=== PATIENT | female | born 1960 | race American Indian/Alaskan Native ===

== ENCOUNTER 2021-02-15 12:21 | Outpatient (CLI) | payer MEDICARE ==
[2021-02-15 13:02] LABS: Basophils % (Auto) 0.8 % (0.0-1.8); Eosinophils # (Auto) 0.2 K/mm3 (0.0-0.4); Eosinophils % (Auto) 3.8 % (0.0-4.3); Hematocrit 39.2 % (30.3-42.9); Hemoglobin 12.9 gm/dl (10.1-14.3); Lymphocytes # (Auto) 2.2 K/mm3 (1.2-5.4); Lymphocytes % (Auto) 39.7 % (13.4-35.0); Mean Corpuscular HGB Conc 33 % (30-34); Mean Corpuscular Volume 86 fl (79-97); Monocytes # (Auto) 0.4 K/mm3 (0.0-0.8); Monocytes % (Auto) 7.3 % (0.0-7.3); Platelet Count 264 K/mm3 (140-440); Red Blood Count 4.55 M/mm3 (3.65-5.03); Red Cell Distribution Width 15.7 % (13.2-15.2)
[2021-02-15 13:25] LABS: Alanine Aminotransferase 20 units/L (7-56); Albumin 3.9 g/dL (3.9-5); Blood Urea Nitrogen 17 mg/dL (7-17); Chol/HDL Ratio 3.77 %; HDL Cholesterol 36 mg/dL (40-59); Hemolysis Index 1; Iron 73 ug/dL (37-170); LDL Cholesterol,Direct 88 mg/dL (50-130); Total Iron Binding Capacity 284 mcg/dL (250-450)
[2021-02-15 13:44] LABS: BUN/Creatinine Ratio 24
[2021-02-19 12:56] LABS: Vitamin D, 25-OH, D2 <4 ng/mL
== END 2021-02-15 12:22 | disposition home or self-care (01) ==
LOC: LAB 12:21
PROVIDERS: ATTEND Surgery
DX: E55.9 Vitamin D deficiency, unspecified (principal); K30 Functional dyspepsia; E11.9 Type 2 diabetes mellitus without complications; E66.01 Morbid (severe) obesity due to excess calories; K90.9 Intestinal malabsorption, unspecified
CPT/HCPCS: 36415; 80053; 80061; 82306; 82607; 82728; 83036; 83550; 84443; 85025; 85730

== ENCOUNTER 2021-03-20 08:23 | Outpatient (CLI) | payer MEDICARE | END 2021-03-20 08:24 | disposition home or self-care (01) | LOC: FLUORO 08:23 | PROVIDERS: ATTEND Surgery | DX: Z01.818 Encounter for other preprocedural examination (principal); E66.01 Morbid (severe) obesity due to excess calories | CPT/HCPCS: 93005; 93017 ==

== ENCOUNTER 2021-03-28 06:40 | Outpatient (CLI) | payer MEDICARE ==
--- NOTE | 2021-03-28 22:50 | Pulmonary Function Test ---
DATE OF VISIT: 03/28/2021 PULMONARY FUNCTION TEST INTERPRETATION DATE OF SERVICE: 03/28/2021 SPIROMETRY: FVC 1.91 liters, which is 80% of the predicted. FEV1 is 1.68 liters, which is 90% of the predicted. FEV1/FVC ratio is 88 and flow volume loop. FEF 25-75% is 2.22 liters per second, which is 116% of predicted. The patient's MVV is 48, which is 55% of the predicted. IMPRESSION: Normal spirometry. TID: [id number] RECEIPT: [id number] JEFF/MEGHAN cc: Cole Gonzalez
--- NOTE | 2021-03-29 08:30 | Fluoroscopy Report ---
BARIUM SWALLOW Indication: MORBID OBESITY. Technique: Single and double contrast barium technique utilized to evaluate the esophagus. FINDINGS: To begin the exam, swallowing was evaluated in the lateral position under direct fluorosco py. Swallowing was normal. No mucosal irregularity, mass, mass effect, or critical stenosis. There were no abnormal tertiary c ontractions as seen with dysmotility. No gastroesophageal reflux. IMPRESSION: Unremarkable exam. Fluoroscopic time: 1.2 minutes Number of fluoroscopic images: 21 Signer Name: Kale Bobo Jr, MD Signed: 03/29/2021 8:26 AM Workstation Name: [id number]
== END 2021-03-28 06:41 | disposition home or self-care (01) ==
LOC: PF 06:40
PROVIDERS: ATTEND Surgery
DX: Z01.818 Encounter for other preprocedural examination (principal); E66.01 Morbid (severe) obesity due to excess calories
CPT/HCPCS: 74221; 94010

== ENCOUNTER 2021-04-10 06:53 | Day surgery (SDC) | payer MEDICARE ==
[2021-04-10] MEDS ORDERED: SODIUM CHLORIDE 0.9% 1000 ML 1,000 ML IV SCH (07:00)
[2021-04-10] MEDS ORDERED: ONDANSETRON 4 MG/2 ML INJ ONE (09:01)
[2021-04-10] MEDS ORDERED: LIDOCAINE MPF (2%) 20 MG/1 ML VIAL 5 ML ONE (09:01)
[2021-04-10] MEDS ORDERED: fentaNYL 100 MCG/2 ML INJ ONE (09:01)
[2021-04-10] MEDS ORDERED: propofoL 200 MG/20 ML VIAL IV ONE (09:02)
--- NOTE | 2021-04-10 09:03 | Anesthesia Consultation ---
Anesthesia Consult and Med Hx Date of service: 04/10/21 - Airway Anesthetic Teeth Evaluation: Good ROM Head & Neck: Adequate Mental/Hyoid Distance: Adequate Mallampati Class: Class III Intubation Access Assessment: Possibly Difficult - Pre-Operative Health Status ASA Pre-Surgery Classification: ASA3 Proposed Anesthetic Plan: MAC - Pulmonary Hx Sleep Apnea: Yes - Cardiovascular System Hx Hypertension: Yes Hx Coronary Artery Disease: No (high cholesterol) - Gastrointestinal Hx Gastroesophageal Reflux Disease: Yes - Endocrine Hx Non-Insulin Dependent Diabetes: Yes - Other Systems Hx Obesity: Yes (BMI 40.4)
--- NOTE | 2021-04-10 09:03 | Anesthesia Day of Surgery ---
Anesthesia Day of Surgery - Day of Surgery Patient Examined: Yes Patient H&P Reviewed: Yes Patient is NPO: Yes Beta Blockers: Yes
--- NOTE | 2021-04-10 09:16 | Discharge Summary ---
Providers - Providers Date of Admission: 04/10/2021 Date of discharge: 04/10/21 Attending physician: STELLA BOSS MD Hospitalization Reason for admission: s/p egd with bx Condition: Good Procedures: egd with bx Hospital course: Pt presented for a pre-op EGD as part of planning for up coming bariatric surgery. Procedure was uneventful and pt recovered well and was discharged to home. Disposition: DC-01 TO HOME OR SELFCARE Final Discharge Diagnosis (Prints w/discharge instructions): morbid obesity, gerd Core Measure Documentation - Palliative Care Palliative Care/ Comfort Measures: Not Applicable - Core Measures Any of the following diagnoses?: none Exam - Physical Exam Narrative exam: unchanged from pre-op - Constitutional Vitals: Temp Pulse Resp BP Pulse Ox 97.8 F 69 18 128/70 98 04/10/21 07:45 04/10/21 07:45 04/10/21 07:45 04/10/21 07:45 04/10/21 07:45 Plan Activity: advance as tolerated Diet: low carbohydrate Follow up with: JAYME ACE [Other] - 7 Days
--- NOTE | 2021-04-10 09:20 | Operative Report ---
Operative Report Operative Report: DATE: 04/10/2021 SURGERY: Upper endoscopy. SURGEON: Cole Gonzalez M.D. PROCEDURE: EGD with biopsy PRE OP DX: morbid obesity, GERD POST OP DX: morbid obesity, GERD TYPE OF ANESTHESIA: MAC. ESTIMATED BLOOD LOSS: None. COMPLICATIONS: None. SPECIMENS REMOVED: antral biopsy FINDINGS: 1. Small hiatal hernia. 2. antral gastritis INDICATIONS:INDICATION FOR PROCEDURE: Patient is a 60-year-old female with a long history of morbid obesity. She is planned to have a weight loss procedure and is here for preoperative planning EGD. PROCEDURE DETAILS: After consent was reviewed, patient was taken back to the operating room where patient was placed in the left lateral decubitus position and a bite block was placed in the mouth. After a time-out was called, MAC anesthesia was initiated. I then passed the endoscope into her oropharynx, into her esophagus, visualized the entire esophagus, which was all within normal limits. Z-line was noted to about 35cm from incisors. I then visualized the stomach and the first portion of the duodenum and there were no abnormalities I could clearly visualize except for antral gastritis. A cold forceps biopsy of the antrum was taken and will be sent to pathology to evaluate for H.pylori. I then retroflexed the scope in the stomach and visualized the hiatus and I could see a small hiatal hernia. I then desufflated the stomach and removed the endoscope. Patient tolerated procedure well and was transferred to recovery room in good and stable condition.
[2021-04-10 09:37] VITALS: BP 105/62
--- NOTE | 2021-04-10 17:20 | Post Anesthesia Evaluation ---
- Post Anesthesia Evaluation Patient Participated: Yes Airway Patent: Yes Stable Respiratory Function: Yes Nausea/Vomiting: No Temp > 96.8F: Yes Pain Manageable: Yes Adequeate Hydration: Yes Anesthesia Complications: No Block Receding Appropriately: Not Applicable Patient on Ventilator: No
== END 2021-04-10 06:54 | disposition home or self-care (01) ==
LOC: GIO 06:53
PROVIDERS: ATTEND Surgery
DX: K21.9 Gastro-esophageal reflux disease without esophagitis (principal); E66.01 Morbid (severe) obesity due to excess calories; K44.9 Diaphragmatic hernia without obstruction or gangrene; K29.50 Unspecified chronic gastritis without bleeding; B96.81 Helicobacter pylori [H. pylori] as the cause of diseases classified elsewhere; I25.10 Atherosclerotic heart disease of native coronary artery without angina pectoris; I10 Essential (primary) hypertension; G47.30 Sleep apnea, unspecified; E66.9 Obesity, unspecified; E11.9 Type 2 diabetes mellitus without complications; Z98.890 Other specified postprocedural states; Z68.41 Body mass index [BMI] 40.0-44.9, adult; Z91.040 Latex allergy status
CPT/HCPCS: 43239; 82962; 88305; 88342; J2405; J2704; J3010; J7030

== ENCOUNTER 2022-03-05 10:28 | Outpatient (CLI) | payer MEDICARE ==
[2022-03-05 11:20] LABS: Basophils # (Auto) 0.1 K/mm3 (0.0-0.1); Basophils % (Auto) 1.2 % (0.0-1.8); Eosinophils # (Auto) 0.2 K/mm3 (0.0-0.4); Eosinophils % (Auto) 4.8 % (0.0-4.3); Hematocrit 46.5 % (30.3-42.9); Hemoglobin 15.2 gm/dl (10.1-14.3); Mean Corpuscular HGB Conc 33 % (30-34); Mean Corpuscular Volume 84 fl (79-97); Monocytes # (Auto) 0.4 K/mm3 (0.0-0.8); Monocytes % (Auto) 7.9 % (0.0-7.3); Red Blood Count 5.51 M/mm3 (3.65-5.03); Red Cell Distribution Width 15.8 % (13.2-15.2)
[2022-03-05 11:23] LABS: Platelet Count 262 K/mm3 (140-440)
[2022-03-05 11:37] LABS: % Iron Saturation 26.64 %; Alanine Aminotransferase 73 units/L (7-56); Albumin 4.5 g/dL (3.9-5); BUN/Creatinine Ratio 25; Blood Urea Nitrogen 27 mg/dL (7-17); Calcium 10.3 mg/dL (8.4-10.2); Chol/HDL Ratio 4.06 %; HDL Cholesterol 30 mg/dL (40-59); Hemolysis Index 5; Iron 81 ug/dL (37-170); LDL Cholesterol,Direct 72 mg/dL (50-130); Total Iron Binding Capacity 304 mcg/dL (250-450)
[2022-03-07 16:13] LABS: Vitamin D, 25-OH, D2 4 ng/mL
== END 2022-03-05 10:29 | disposition home or self-care (01) ==
LOC: LAB 10:28
PROVIDERS: ATTEND Surgery
DX: Z13.21 Encounter for screening for nutritional disorder (principal); Z13.29 Encounter for screening for other suspected endocrine disorder; E11.9 Type 2 diabetes mellitus without complications; E66.01 Morbid (severe) obesity due to excess calories; E55.9 Vitamin D deficiency, unspecified; K30 Functional dyspepsia; K90.9 Intestinal malabsorption, unspecified; Z98.84 Bariatric surgery status
CPT/HCPCS: 36415; 80053; 80061; 82306; 82607; 82728; 83036; 83550; 84425; 84443; 85025